=== PATIENT | male | born 1940 | race African-American/Black ===

== ENCOUNTER 2017-05-10 12:04 | Inpatient (IN) | payer OTHER, MEDICARE ==
[~2017-05-10] VITALS: Ht 180.3 cm; Wt 100.7 kg
[2017-05-10 12:47] LABS: BASOPHILS % 1.2 % (0.0-2.0); EOSINOPHILS % 4.6 % (0.0-5.0); HEMATOCRIT. 42.6 % (42.0-52.0); HEMOGLOBIN. 14.7 g/dL (14.0-18.0); LYMPHOCYTES % 31.1 % (20.0-50.0); MEAN CORPUSCULAR HEMOGLOBIN 32.7 pg (28.0-32.0); MEAN CORPUSCULAR VOLUME 94.7 fL (80.0-94.0); MEAN PLATELET VOLUME 8.4 fl (7.4-10.4); MONOCYTES % 7.5 % (2.0-8.0); NEUTROPHILS % 55.6 % (40.0-76.0); PLATELET 140 x1000/uL (130-400); RED CELL DISTRIBUTION WIDTH 12.8 % (11.6-14.6)
[2017-05-10 12:54] LABS: CHLORIDE 104 mEq/L (98-107); INR 1.1
[2017-05-10 13:00] LABS: CARBON DIOXIDE 27 mEq/L (21-32)
[2017-05-10 13:03] LABS: TROPONIN I 0.14 ng/mL (0.00-0.04)
[2017-05-10] MEDS ORDERED: POTASSIUM CHLORIDE 20MEQ TABLET SR PO NR (14:00)
[2017-05-10 15:14] VITALS: BP 162/68
[2017-05-10] MEDS ORDERED: TERA10CA43 PO (15:44)
[2017-05-10] MEDS ORDERED: KCL 20MEQ/100ML PREMIX 100 ML IV NR (16:00)
[2017-05-10] MEDS ORDERED: FINA5TAB11 PO (16:09)
[2017-05-10] MEDS ORDERED: VALS1TAB80 PO (16:09)
[2017-05-10] MEDS ORDERED: AMLO5TAB88 PO (16:09)
[2017-05-10] MEDS ORDERED: METO-296 PO (16:09)
[2017-05-10] MEDS ORDERED: ASPI-864 PO (16:41)
[2017-05-10] MEDS ORDERED: AMLO5TAB4 PO (16:41)
[2017-05-10 16:46] VITALS: BP 150/89
[2017-05-10] MEDS ORDERED: FINA1TAB18 PO (16:46)
[2017-05-10] MEDS ORDERED: MAGNESIUM 2 G PREMIX 50 ML IV NR (17:00)
[2017-05-10 17:29] VITALS: BP 137/79
[2017-05-10] MEDS ORDERED: CLONIDINE 0.1MG TABLET PO PRN (17:45)
[2017-05-10] MEDS: FINASTERIDE 5MG TABLET PO SCH (17:52)
[2017-05-10] MEDS: LOSARTAN POTASSIUM 50 MG TABLET PO SCH ×3 (17:52→21:37)
[2017-05-10 18:00] VITALS: BP 155/87
[2017-05-10 20:08] VITALS: BP_SYST 147; BP_SYST 157; BP_SYST 92; BP_DIAS 45; BP_DIAS 90; BP_DIAS 95
[2017-05-10] MEDS: METOPROLOL TARTRATE 25MG TABLET PO SCH (21:00)
[2017-05-10] MEDS ORDERED: MEDICATION NOT ON FORMULARY EA (Terazosin Hcl 1 CAP) PO SCH (21:00)
[2017-05-10] MEDS: TERAZOSIN HCL 5MG CAPSULE PO SCH (21:32)
[2017-05-10 22:06] VITALS: BP 151/84
[2017-05-11] VITALS (13 sets, daily range): BP systolic 124–156; BP diastolic 57–89
[2017-05-11 06:37] LABS: HEMATOCRIT 43.9 % (42.0-52.0); MEAN CORPUSCULAR HEMOGLOBIN 32.6 pg (28.0-32.0); MEAN CORPUSCULAR VOLUME 95.4 fL (80.0-94.0); PLATELET 152 x1000/uL (130-400); RED CELL DISTRIBUTION WIDTH 12.7 % (11.6-14.6)
[2017-05-11 07:26] LABS: CARBON DIOXIDE 23 mEq/L (21-32); CHLORIDE 105 mEq/L (98-107)
[2017-05-11] MEDS ORDERED: CETI10TA6 PO (07:45)
[2017-05-11] MEDS: METOPROLOL TARTRATE 25MG TABLET PO SCH (08:40)
[2017-05-11] MEDS: AMLODIPINE 5MG TABLET PO SCH (08:41)
[2017-05-11] MEDS: FINASTERIDE 5MG TABLET PO SCH (08:41)
[2017-05-11] MEDS: ASPIRIN 81MG EC TABLET PO SCH (08:41)
[2017-05-11] MEDS ORDERED: AMLODIPINE 5MG TABLET PO SCH (09:00)
[2017-05-11] MEDS ORDERED: POTASSIUM CHLORIDE 20MEQ TABLET SR PO SCH (09:45)
[2017-05-11] MEDS ORDERED: REGADENOSON 0.4 MG/5 ML IV ONE ×2 (09:45→13:01)
[2017-05-11] MEDS ORDERED: ZOLPIDEM TARTRATE 5MG TABLET PO PRN (15:00)
[2017-05-11] MEDS: SPIRONOLACTONE 25MG TABLET PO SCH (15:16)
[2017-05-11] MEDS: CARVEDILOL 6.25 MG TABLET PO SCH ×2 (15:16→23:00)
[2017-05-11] MEDS ORDERED: POTASSIUM CHLORIDE 20MEQ/PACKET PO NR (16:56)
[2017-05-11] MEDS: TERAZOSIN HCL 5MG CAPSULE PO SCH (20:47)
[2017-05-12] VITALS (10 sets, daily range): BP systolic 98–149; BP diastolic 56–99
[2017-05-12] MEDS ORDERED: POTASSIUM CHLORIDE 20MEQ/PACKET PO ONE (01:15)
[2017-05-12 06:03] LABS: BASOPHILS % 1.4 % (0.0-2.0); EOSINOPHILS % 4.5 % (0.0-5.0); HEMATOCRIT. 41.6 % (42.0-52.0); HEMOGLOBIN. 14.5 g/dL (14.0-18.0); LYMPHOCYTES % 37.9 % (20.0-50.0); MEAN CORPUSCULAR HEMOGLOBIN 33.2 pg (28.0-32.0); MEAN CORPUSCULAR VOLUME 95.5 fL (80.0-94.0); MEAN PLATELET VOLUME 8.9 fl (7.4-10.4); MONOCYTES % 8.8 % (2.0-8.0); NEUTROPHILS % 47.4 % (40.0-76.0); PLATELET 145 x1000/uL (130-400); RED BLOOD CELL COUNT 4.36 mill/uL (4.7-6.1); RED CELL DISTRIBUTION WIDTH 12.6 % (11.6-14.6)
[2017-05-12] MEDS: ASPIRIN 81MG EC TABLET PO SCH (08:36)
[2017-05-12] MEDS: SPIRONOLACTONE 25MG TABLET PO SCH (08:36)
[2017-05-12] MEDS: FINASTERIDE 5MG TABLET PO SCH (08:36)
[2017-05-12] MEDS: CARVEDILOL 6.25 MG TABLET PO SCH (08:36)
[2017-05-12] MEDS: AMLODIPINE 5MG TABLET PO SCH (08:37)
[2017-05-12] MEDS ORDERED: POTASSIUM CHLORIDE 20MEQ TABLET SR PO SCH (09:00)
[2017-05-12] MEDS ORDERED: ENTRESTO PO SCH (10:15)
[2017-05-12] MEDS ORDERED: POTASSIUM CHLORIDE 20MEQ TABLET SR PO NR (11:15)
== END 2017-05-12 12:25 | disposition home or self-care (01) | DRG 309 ==
LOC: ER 13:03 → EDBEDREQSVC 13:19 → 3WST 13:23 → EEVIPCON 13:23 → EDBEDREQ 13:26 → EDBEDREQTM 13:26 → ENRESERV 13:40
PROVIDERS: ADMIT Internal Medicine; ATTEND Internal Medicine
DX: I47.2 Ventricular tachycardia (principal); I13.0 Hypertensive heart and chronic kidney disease with heart failure and stage 1 through stage 4 chronic kidney disease, or unspecified chronic kidney disease; I42.0 Dilated cardiomyopathy; I48.91 Unspecified atrial fibrillation; N40.0 Benign prostatic hyperplasia without lower urinary tract symptoms; N18.9 Chronic kidney disease, unspecified; E83.42 Hypomagnesemia; E87.6 Hypokalemia; I50.9 Heart failure, unspecified; Z95.810 Presence of automatic (implantable) cardiac defibrillator; Z88.2 Allergy status to sulfonamides; Z82.49 Family history of ischemic heart disease and other diseases of the circulatory system; Z91.19 Patient's noncompliance with other medical treatment and regimen
CPT/HCPCS: 36415; 70450; 71010; 78452; 80048; 80053; 80061; 83036; 83735; 83880; 84132; 84443; 84484; 85025; 85027; 85610; 93005; 93017; 93306; 93880; 99285; A9500; J2785; J3475; J3480; J7050